=== PATIENT | male | born 1985 | race Caucasian/White ===

== ENCOUNTER 2016-06-02 17:59 | Emergency (ER) | payer SELFPAY ==
--- NOTE | 2016-06-02 18:44 | ED Physician Documentation ---
Sore Throat/Dental Pain - HISTORIAN Historian: patient - HPI Chief Complaint: Dental Pain Additional Information: L maxillay lateral incisor pain. About one month ago had abscess, resolved with Abx, has not seen dentist. No with increased swelling and pain similar to initial presentation. No f/c/n/v. All other systems reviewed and negative except HPI. - ROS CONST: no problems CVS/RESP: none NEURO/PSYCH: none - PAST HX Past History: none Other History: none Allergies/Adverse Reactions: Allergies Allergy/AdvReac Type Severity Reaction Status Date / Time No Known Allergies Allergy Verified 09/30/15 02:41 Home Medications: Ambulatory Orders Medication Instructions Recorded Azithromycin 500 mg PO DAILY #3 tablet 09/29/15 - SOCIAL HX Smoking History: cigarettes, greater than 1 pack/day Alcohol Use: none Drug Use: none - FAMILY HX Family History: No - VITAL SIGNS Vital Signs: Vital Signs Temp Pulse Resp BP Pulse Ox 139/77 09/29/15 21:35 - REVIEWED ASSESSMENTS Nursing Assessment Reviewed: Yes Vitals Reviewed: Yes Dental Pain Physical Exam - EXAM General Appearance: mild distress (pain) Head/Neck: no lymphadenopathy, maxillary swelling (L). No: mandibular swelling (L), maxillary swelling (R), facial erythema, cervical lymphadenopathy Eyes: No: eyes nml inspection, PERRL Mouth/Throat: lips nml, gums nml, pharynx nml, other (Pain superior to L maxillary lateral incisor. ) Respiratory: no resp. distress, breath sounds nml. No: respiratory distress CVS: reg. rate & rhythm, heart sounds nml. No: murmur Abdomen: soft, no organomegaly, normal bowel sounds, no distension, non-tender Extremities: non-tender Skin: warm/dry, normal color Neuro/Psych: No: weakness, numbness Discharge Clincal Impression: Pain, dental, Apical abscess Referrals: Stanley Choi MD [Primary Care Provider] - 2 Days Home Medications: Ambulatory Orders Azithromycin 500 mg PO DAILY #3 tablet 09/29/15 Condition: Good Disposition: 01 HOME, SELF-CARE Decision to Admit: NO Decision Time: 18:48
[2016-06-02 19:07] VITALS: BP 117/67
== END 2016-06-02 19:06 | disposition home or self-care (01) ==
LOC: ED 17:59
DX: K02.9 Dental caries, unspecified (principal)
CPT/HCPCS: 99282; 99283

== ENCOUNTER 2017-10-01 19:35 | Emergency (ER) | payer SELFPAY ==
--- NOTE | 2017-10-01 19:57 | ED Physician Documentation ---
Upper Extremity Injury - HISTORIAN Historian: patient, spouse - HPI Stated Complaint: thumb lac Chief Complaint: Hand Injury Additional Information: Staple gun to left thumb at 1730 today. Last tetanus 11 years ago. - ROS CONST: no problems - PAST HX Past History: none, Rt handed Allergies/Adverse Reactions: Allergies Allergy/AdvReac Type Severity Reaction Status Date / Time No Known Allergies Allergy Verified 06/02/16 19:05 Home Medications: Ambulatory Orders Medication Instructions Recorded PARoxetine HCL [Paxil] 20 mg PO DAILY 06/02/16 - SOCIAL HX Smoking History: cigarettes Alcohol Use: occasionally Drug Use: none - FAMILY HX Family History: no significant history - VITAL SIGNS Vital Signs: Vital Signs Temp Pulse Resp BP Pulse Ox 124/65 06/02/16 19:06 - REVIEWED ASSESSMENTS Nursing Assessment Reviewed: Yes Vitals Reviewed: Yes ED Results Lab/Radiology - Orders Orders: ED Orders Category Date Time Status Apply occlusive dressing D Care 10/01/17 19:55 Ordered Cleanse with NS and Chlorhexid 1T Care 10/01/17 19:55 Ordered Diph,Pertuss(Acell),Tet Vac/Pf [Adacel] Med 10/01/17 19:55 Once 0.5 ml IM .ONCE ONE Neomycin/Bacitracin/Polymyxinb [Triple Antibiotic Med 10/01/17 19:55 Once Ointment] 1 each TP NOW ONE Upper Extremity Injury Physic - Physical Exam General Appearance: alert, mild distress (anxious) Hand: normal inspection (except L thumb with slight avulsion abrasion/lac from nail to palmar surface distal phalanx, 1.5 cm in length; no active bleeding. Superficial flap mid distal phalanx palmar surface left thumb) Wrist: normal inspection, no evidence of injury Elbow/Forearm: no evidence of injury Shoulder: no evidence of injury Neuro/Vascular/Tendon: no vascular compromise, motor nml, sensation nml Skin: warm,dry Head/ENT: nml inspection Neck/Back: nml inspection Resp/CVS: no resp. distress Discharge Clincal Impression: Laceration Referrals: Primary Doctor,No [Primary Care Provider] - 2 Days Additional Instructions: Leave the bandage on for 24 hours. After that, cover the area with a band aid if you will be working in an area that is tim or dirty. Keep the thumb clean and dry. You can apply antibiotic ointment twice a day for a week. Return to the ER or see your provider if the thumb seems to be infected. Condition: Good Disposition: 01 HOME, SELF-CARE Decision to Admit: NO Decision Time: 20:00
[2017-10-01] MEDS: DIPH,PERTUSS(ACELL),TET VAC/PF 0.5 ML DISP.SYRIN IM ONE (20:15)
[2017-10-01] MEDS: NEOMYCIN/BACITRACIN/POLYMYXINB 1 EACH OINT.PACK TP ONE (20:15)
--- NOTE | 2017-10-01 20:52 | Diagnostic Imaging Report ---
[facility] [address] [facility] [address] [address] Report Submission Date: Oct 01, 2017 8:50:09 PM CDT Patient Study Name: MILY BOLANOS Date: Oct 01, 2017 8:31:23 PM CDT Modality Type: DX Gender: M Description: UPPER EXTREMITY : 87 Institution: [facility] Physician: JACEY ORTEGA - LUIS Left first finger, 3 views HISTORY Injury. FINDINGS The osseous, joint and soft tissue structures are normal. There is no opaque retained foreign body. IMPRESSION Normal. Electronically signed on Oct 01, 2017 8:50:09 PM CDT by: Nathan MCBRIDE
[2017-10-01] MEDS: CEPHALEXIN 250 MG CAPSULE PO ONE (21:20)
[2017-10-01 22:29] VITALS: BP 135/72
== END 2017-10-01 21:20 | disposition home or self-care (01) ==
LOC: ED 19:35
DX: S61.012A Laceration without foreign body of left thumb without damage to nail, initial encounter (principal); X58.XXXA Exposure to other specified factors, initial encounter; Y92.9 Unspecified place or not applicable; Y93.9 Activity, unspecified; Y99.9 Unspecified external cause status
CPT/HCPCS: 73140; 90471; 90715; 99283